=== PATIENT | male | born 2000 | race Two or more races ===

== ENCOUNTER 2023-09-15 22:56 | Emergency (ER) | payer SELFPAY ==
[~2023-09-15] VITALS: Ht 188 cm; Wt 63.1 kg
[2023-09-15 23:05] VITALS: BP 109/65; PULSE 88; RESP 18; O2SAT 95
== END 2023-09-16 00:54 | disposition left against medical advice (07) ==
LOC: ER 22:56
DX: M54.50 Low back pain, unspecified (principal); Z53.21 Procedure and treatment not carried out due to patient leaving prior to being seen by health care provider; V43.62XA Car passenger injured in collision with other type car in traffic accident, initial encounter; Y93.89 Activity, other specified; Y92.89 Other specified places as the place of occurrence of the external cause; Y99.8 Other external cause status